=== PATIENT | female | born 1995 | race African-American/Black ===

== ENCOUNTER 2021-07-12 09:15 | Outpatient (CLI) | payer BC, MEDICARE, MEDICAID, SELFPAY | END 2021-07-12 09:16 | disposition home or self-care (01) | LOC: ANHBWCAUD 09:18 | PROVIDERS: PCP Family Medicine; Visit Provider Family Medicine | DX: H91.93 Unspecified hearing loss, bilateral (principal) | CPT/HCPCS: 92553; 92555; 92567 ==

== ENCOUNTER 2021-12-19 13:23 | Emergency (ER) | payer BC, MEDICARE, MEDICAID, SELFPAY ==
[2021-12-19 13:34] VITALS: BP 134/77; PULSE 100; RESP 20; TEMP 36.6; O2SAT 100
--- NOTE | 2021-12-19 13:40 | ED.EYEPROB ---
HPI - Eye Problem General Chief complaint: Eye Problems Stated complaint: right eye swollen/discharge Time Seen by Provider: 12/19/21 13:40 Source: patient and RN notes reviewed Mode of arrival: ambulatory Limitations: no limitations History of Present Illness HPI Narrative: 26-year-old female with a history of MR presents to the [facility] with complaints of right eye redness, patient to follow-up in 2-3 days with primary care provider.. [facility]. Senior Payroll Administrator said she was fine on Sunday unsure of which day it started. No treatment prior to arrival. Patient denies any changes in vision. Denies any injury to the eye. Related Data Home Medications Medication Instructions Recorded Confirmed divalproex 500 mg tablet,delayed 500 mg PO DAILY 12/19/21 12/19/21 release medroxyprogesterone 150 mg/mL 150 mg IM [id number] 12/19/21 12/19/21 intramuscular syringe melatonin 1 mg tablet 2 mg PO HS 12/19/21 12/19/21 Allergies Allergy/AdvReac Type Severity Reaction Status Date / Time No Known Allergies Allergy Verified 12/19/21 14:01 Review of Systems Review of Systems: All systems reviewed & are unremarkable except as noted in HPI and below Constitutional: Constitutional: Reports no additional constitutional complaints, Denies chills and Denies fever(s) Eyes: Eyes: Reports as per HPI ENT: Reports system reviewed and no additional complaints, except as documented Cardiovascular: Cardiovascular: Reports no additional cardiovascular complaints Respiratory: Respiratory: Reports no additional respiratory complaints Gastrointestinal: Gastrointestinal: Reports no additional gastrointestinal complaints Musculoskeletal: Musculoskeletal: Reports no additional musculoskeletal complaints Integumentary/Breasts: Skin/Breast: Reports system reviewed and no additional complaints, except as docu Neurologic: Reports system reviewed and no additional complaints, except as documented Psychiatric: Psychiatric: Reports no additional psychiatric complaints Allergic/Immunologic: Allergic/Immunologic: Reports no additional allergic/immunologic complaints [facility] Social History Social History (Updated 12/19/21 @ 21:32 by Estefany Stern APRN) Living arrangements: [facility] Gender identity (if verbalized by the patient): Female Comments At the time of my signature, I reviewed and agree with the nursing past medical, surgical, social, and family history. There is no relevant family history pertinent to the patient complaint. Exam Const: General: healthy appearing, no acute distress and alert Nutritional Appearance: well nourished Orientation/consciousness: patient oriented x3 Limitations: no limitations HENMT: Head: normal to inspection Ears: external ears normal, TM's normal bilaterally and EAC's normal General nose exam: Normal external nose present Throat: posterior oropharynx normal Eyes: General: appearance normal, both eyes and all related structures Conjunctivae: conjunctival abnormality right conjunctival injection circumcorneal and discharge purulent Pupils: Equal, round and reactive pupils present EOM: EOMs intact bilaterally Neck: Neck: normal visual inspection, no lymphadenopathy and no meningeal signs Chest: Chest palpation & inspection: normal inspection of the chest Resp: Effort & Inspection: normal respiratory effort and no use of accessory muscles Auscultation: clear to auscultation bilaterally, no crackles, no rales, no rhonchi and no wheezes Cardio: Rate: regular rate Rhythm: regular rhythm Back/Spine/Pelvis: Cervical Spine: normal cervical lordosis Thoracic/Lumbar Spine: thoracic and lumbar spine normal to inspection Skin: General skin exam: normal color Rashes: no rashes Wounds: no wounds Neuro: General: patient oriented x3, moves all extremities, no meningeal signs and no focal motor deficits Cranial nerves: Yes Equal, round and reactive pupils present Spee
== END 2021-12-19 14:15 | disposition home or self-care (01) ==
PROVIDERS: Emergency Provider Nurse Practitioner; PCP Family Medicine
DX: H10.9 Unspecified conjunctivitis (principal)
CPT/HCPCS: 99213; G0463

== ENCOUNTER 2025-02-03 08:07 | Emergency (ER) | payer MEDICARE, MEDICAID, SELFPAY ==
--- OUTSIDE RECORDS SUMMARY | 2025-01-01 08:00 | XMS_ITS ---
Author Organization [facility] Address [address] [place] [address] Care Team Providers Care Drilling Machine Operator Name Role Phone Keren Trotter Primary Care Provider Autumn Solis Unavailable [phone] REASON FOR VISIT 3 Month Psych F/U & Med Refill Encounters Encounter Location Date Provider Diagnosis [address] [place] [address] 01/01/2025 Autumn Solis Plan Of Treatment Next Appt Details Provider Name:Autumn alba, 02/10/2025 03:40:00 PM, [address], [place], [address], Progress Notes * Priti ISIDRODOB:1995 (30 yo F)Acc No.[id number]:01/01/2025 UNLOCKED PROGRESS NOTE Patient: Priti MORA Provider: Felipe Solis, MSN, BRICKLAYER SEWER, APPRENTICESHIP CONSULTANT-C :1995 A ge:29 Y S ex:Female Date:01/01/2025 Address:[address], [place], [id number] Pcp:Keren Trotter Subjective: * Chief Complaints: * 1 . 3 Month Psych F/U & Med Refill. * Medical History: Objective: * Vitals: Assessment: Plan: * Treatment: * * Electronic signature of Chai Solis , [id number] on 02/03/2025 at 08:13 AM CDT Sign off status: Pending * Provider: Felipe Solis, MSN, BRICKLAYER SEWER, APPRENTICESHIP CONSULTANT-C Date: 0 01/01/2025 Generated for Salvador nguyen/Trupti/Michoacano on: 1 08:13 AM CDT
--- OUTSIDE RECORDS SUMMARY | 2025-01-08 11:00 | XMS_ITS ---
Author Organization [facility] Address [address] [place] [address] Care Team Providers Care Laundry Technician Name Role Phone Keren Trotter Primary Care Provider Diana Pulido Unavailable REASON FOR VISIT transfer from Jamie Trotter; needs 40 min Encounters Encounter Location Date Provider Diagnosis [facility] [address] [place] [address] 01/08/2025 Diana Pulido Plan Of Treatment Next Appt Details Provider Name:Autumn Anival alba, 02/10/2025 03:40:00 PM, [address], [place], [address], Progress Notes * Priti ISIDRODOB:1995 (30 yo F)Acc No.[id number]:01/08/2025 UNLOCKED PROGRESS NOTE Progress Notes Patient: Priti MORA Provider: Robert Pulido, MSN, STONE AND PLATE PREPARER APPRENTICE, AUTO TRANSMISSION SPECIALIST-BC, AUTO TRANSMISSION SPECIALIST-C :1995 A ge:29 Y S ex:Female Date:01/08/2025 Address:[address], [place], [id number] Pcp:Keren Trotter Subjective: * Chief Complaints: * 1 . transfer from Jamie Trotter; needs 40 min. * Medical History: Objective: * Vitals: Assessment: Plan: * Treatment: * * Electronic signature of Bandar Pulido APRN, [id number] on 02/03/2025 at 08:14 AM CDT Sign off status: Pending * Provider: Robert Pulido, MSN, STONE AND PLATE PREPARER APPRENTICE, AUTO TRANSMISSION SPECIALIST-BC, AUTO TRANSMISSION SPECIALIST-C Date: 0 01/08/2025 Generated for Printing/Faxing/eTransmitting on: 1 08:14 AM CDT
--- OUTSIDE RECORDS SUMMARY | 2025-01-20 09:00 | XMS_ITS ---
Author Organization [facility] Address [address] [place] [address] Care Team Providers Care Buffing Machine Operator Name Role Phone Keren Trotter Primary Care Provider Autumn Solis Unavailable [phone] REASON FOR VISIT 3 Month Psych F/U & Med Refill Encounters Encounter Location Date Provider Diagnosis [facility] [address] [place] [address] 01/20/2025 Autumn Solis Plan Of Treatment Next Appt Details Provider Name:Autumn alba, 02/10/2025 03:40:00 PM, [address], [place], [address], Progress Notes * Priti ISIDRODOB:1995 (30 yo F)Acc No.[id number]:01/20/2025 UNLOCKED PROGRESS NOTE Patient: Priti MORA Provider: Felipe Solis, MSN, CASING SPLITTER, EMAIL SPECIALIST-C :1995 A ge:29 Y S ex:Female Date:01/20/2025 Address:[address], [id number] Pcp:Keren Trotter Subjective: * Chief Complaints: * 1 . 3 Month Psych F/U & Med Refill. * Medical History: Objective: * Vitals: Assessment: Plan: * Treatment: * * Electronic signature of Chai Solis , [id number] on 02/03/2025 at 08:14 AM CDT Sign off status: Pending * Provider: Felipe Solis, MSN, CASING SPLITTER, EMAIL SPECIALIST-C Date: 0 01/20/2025 Generated for Salvador nguyen/Trupti/Michoacano on: 1 08:14 AM CDT
--- NOTE | 2025-02-03 08:11 | ED.FEMALEGU ---
HPI - Female Genitourinary General Chief complaint: Urogenital-Female Stated complaint: UTI Time Seen by Provider: 02/03/25 08:25 Source: patient, RN notes reviewed and old records reviewed Mode of arrival: ambulatory Limitations: no limitations History of Present Illness HPI Narrative: 30-year-old female presents to the [facility] with concerns for a UTI. Patient presents with guardian, states that of last week started complaining of a little bit of burning but no other symptoms. Was given an gnzz-msu-[id number] medication. No complaints until yesterday when she started having burning with urination as well as urgency. Currently on the Depo shot. Patient denies any abdominal pain, chest pain, nausea, vomiting, back pain. No fevers. Related Data Home Medications ?Medication ?Instructions ?Recorded ?Confirmed ?Last Taken ?Type divalproex 500 mg tablet,delayed 500 mg PO DAILY 12/19/21 12/19/21 Unknown History release medroxyprogesterone 150 mg/mL 150 mg IM [id number] 12/19/21 12/19/21 Unknown History intramuscular syringe melatonin 1 mg tablet 2 mg PO HS 12/19/21 12/19/21 Unknown History guanfacine 1 mg tablet,extended mg PO 02/03/25 Unknown History release 24 hr Allergies Allergy/AdvReac Type Severity Reaction Status Date / Time No Known Allergies Allergy Verified 02/03/25 08:33 Review of Systems Review of Systems: All systems reviewed & are unremarkable except as noted in HPI and below Constitutional: Constitutional: Reports no additional constitutional complaints Cardiovascular: Cardiovascular: Reports no additional cardiovascular complaints, Denies chest pain and Denies dyspnea Respiratory: Respiratory: Reports no additional respiratory complaints, Denies chest congestion, Denies cough and Denies dyspnea Genitourinary: Genitourinary: Reports as per HPI, Reports dysuria, Denies flank pain and Reports urinary urgency (With frequency) Musculoskeletal: Musculoskeletal: Reports no additional musculoskeletal complaints Integumentary/Breasts: Skin/Breast: Reports system reviewed and no additional complaints, except as docu PMFSH Past Medical History Medical History (Updated 02/03/25 @ 08:35 by Estefany Stern APRN) ADHD Social History Social History Living arrangements: detention Gender identity (if verbalized by the patient): Female Comments At the time of my signature, I reviewed and agree with the nursing past medical, surgical, social, and family history. There is no relevant family history pertinent to the patient complaint. Exam Const: General: cooperative, healthy appearing, comfortable, no acute distress, well developed, alert and well nourished Nutritional Appearance: well nourished Orientation/consciousness: patient oriented x3 Limitations: no limitations HENMT: Head: normal to inspection Eyes: General: appearance normal, both eyes and all related structures Alignment and Position: alignment normal Neck: Neck: normal visual inspection, full ROM, no lymphadenopathy and no meningeal signs Chest: Chest palpation & inspection: normal inspection of the chest Resp: Effort & Inspection: normal respiratory effort and able to speak in complete sentences Cardio: Rate: regular rate Skin: General skin exam: normal color and no rashes or lesions noted Neuro: General: patient oriented x3, gait normal, moves all extremities and no meningeal signs Cognition (Neuro): normal cognition Speech: normal speech Gait exam (Neuro): Normal gait present Extrem: General: normal to inspection, full ROM, capillary refill normal and normal gait Psych: Appearance: grossly normal and well kempt Mental Status: mental status grossly normal Speech and movement: Normal speech and movement present and Clear speech present Affect: normal affect Attitude: cooperative Course Course Level of Care: Express Care Visit Vital Signs Vital signs: Vital Signs Temperature 97.5 F L 02/03/25 08:23 Pulse Rate 78 02/03/25 08:23 Respiratory Rate 18 02/03/25 08:23 Blood Pressure 122/71 02/03/25 08:23 Pulse Oximetry 99 02/03/25 08:23 Oxygen Delivery Room Air 02/03/25 08:23 Temperature 97.5 F L 02/03/25 08:23 Pulse Rate 78 02/03/25 08:23 Respiratory Rate 18 02/03/25 08:23 Blood Pressure 122/71 02/03/25 08:23 Pulse Oximetry 99 02/03/25 08:23 Oxygen Delivery Room Air 02/03/25 08:23 Reviewed MDM - Female Genitourinary MDM Narrative Medical decision making narrative: Patient sitting in exam room. Patient is nontoxic, vitals stable. Patient presents with urinary symptoms. Trace leukocytes noted. Patient is appropriate for outpatient treatment with antibiotics, culture sent Discharge instructions reviewed with patient, as well as provided in writing per nursing staff. The instructions also include specific and strict return/GO TO THE ER as well as f/u information. All questions have been answered, and the patient deny any further questions with discharge and discharge plan. Some parts of this dictation were generated by voice recognition software and may contain typographical and/or grammatical inaccuracies. Differential Diagnosis Differential diagnosis: Likely urinary tract infection, vaginitis and cystitis Lab Data Labs: Lab Results 02/03/25 Range/Units 08:33 POC Urine Color Yellow POC Urine Clarity Clear POC Urine pH 7.0 POC Ur Specif [place] 1.020 POC Urine Protein Trace (Negative) POC Ur Glucose (UA) Negative (Negative) POC Urine Ketones Negative (Negative) POC Urine Blood Trace (Negative) POC Urine Nitrite Negative (Negative) POC Urine Bilirubin Negative (Negative) POC Urine Urobilinogen 1.0 POC U Leukocyte Esteras 1+ (Negative) Reviewed Critical Care Time Critical Care Time Critical Care Time: No Discharge Plan Discharge Clinical Impression: Urinary tract infection Patient Disposition: Home Condition: Stable Instructions: Antibiotic Form, Urinary Tract Infection in Women (DC) Additional Instructions: Increased water intake Take Tylenol as needed for pain Take antibiotic as prescribed Today your urine dip showed a probability of a UTI. You have been prescribed an antibiotic. Your urine will be sent to our lab for a culture. If at that time a bacteria grows that is not covered by the antibiotic prescribed you will be notified. Follow-up with primary care For new or worsening symptoms go directly to the emergency room Patient Language: [place] Islander Prescriptions: New amoxicillin-pot clavulanate 875-125 mg tablet 1 tablet PO Q12H Qty: 10 0RF No Action guanfacine 1 mg tablet extended release 24 hr PO divalproex 500 mg tablet,delayed release (DR/EC) 500 mg PO DAILY medroxyprogesterone 150 mg/mL syringe 150 mg IM [id number] melatonin 1 mg Tablet 2 mg PO HS Follow-up/Referrals: UNKNOWN,DOCTOR [Non-Staff] Time of Disposition: 08:36
--- OUTSIDE RECORDS SUMMARY | 2025-02-03 08:13 | XMS_ITS | Encounter Summary ---
Author Organization [facility] Address [address] [place] [address] Care Team Providers Care Attending Urologist Name Role Phone Unavailable Primary Care Provider Unavailabl e Reason for Referral * Consultation (Routine) - Closed Specialty Diagnoses / Procedures Referred By Rashi t Referred To Contact Ophthalmology Diagnoses Open angle with borderline findings and low glaucoma risk in both eyes Eval for OCT ONH + GCC, VF 24-2. IOP check [facility] - Ophthalmology [address] [place] [address] Phone: tel: fax: Referral ID Status Reason Start Date Expiration Date V isits Requested Visits Authorized [id number] Closed Specialty Services Required 03/19/2024 03/19/2025 1 1 FARMER Encounter Details Date Type Department Care Team (Latest Contact Info) Description 03/19/2024 Transcribe Orders [facility] - Centralized Scheduling [address] [place] [phone] [facility] Open angle with borderline findings and low glaucoma risk in both eyes Social History Tobacco Use Types Packs/Day Years Used Date Smoking Tobacco: Never Smokeless Tobacco: Never Alcohol Use Standard Drinks/Week Comments Never 0 (1 standard drink = 0.6 oz pur e alcohol) AUDIT-C Answer Date Recorded Q1: How often do you have a drink containing alcohol? Never 12/18/2023 Q2: How many drinks containi ng alcohol do you have on a typical day when you are drinking? Patient does not drink Q3: How often do you have si x or more drinks on one occasion? Never 12/18/2023 Overall Financial Resource Strain (CARDIA) Answe r Date Recorded How hard is it for you to pa y for the very basics like food, housing, medical care, and heating? Very hard 12/18/2023 PHQ-2 Answer Date Recorded Patient Health Questionnaire-2 Score 1 12/17/2023 [facility] - Occupational Stress Questionnaire Answer Date Recorded Do you feel stress - tense, restless, nervous, or anxious, or unable to sleep at night because your mind is troubled all the time - these days? To some extent 12/18/2023 Hunger Vital Sign Answer Date Recorded Within the past 12 months, y ou worried that your food would run out before you got the money to buy more. Never true 12/18/19 24 Within the past 12 months, t he food you bought just didn't last and you didn't have money to get more. Never true 12/18/2023 PRAPARE - Transportation Answer Date Re corded In the past 12 months, has l ack of transportation kept you from medical appointments or from getting medications? No 11/29 In the past 12 months, has l ack of transportation kept you from meetings, work, or from getting things needed for daily living? No 12/18/2023 Housing Stability Vital Sign Answer Sameer e Recorded In the last 12 months, was t here a time when you were not able to pay the mortgage or rent on time? No 12/18/2023 In the last 12 months, how many places have you lived? 1 12/18/2023 In the last 12 months, was t here a time when you did not have a steady place to sleep or slept in a half-way (including now)? Yes 12/18/2023 Comments No Sex and Gender Information Value Date Recorded Sex Assigned at Not on file Legal Sex Female 10:58 AM CDT Gender Identity Not on file Sexual Orientation Not on file documented as of this encounter Functional Status * Is person deaf or have serious hearing difficulty? Answer Date of Assessment Author No 12/18/2023 9:50 PM CDT Addison Vargas V., RN * Is person blind or have serious difficulty seeing? Answer Date of Assessment Author No 12/18/2023 9:50 PM Addison Snyder RN * Does person have serious difficulty walking/climbing stairs? Answer Date of Assessment Author No 12/18/2023 9:50 PM Addison Snyder RN * Does person have difficulty dressing/bathing? Answer Date of Assessment Author No 12/18/2023 9:50 PM Addison Snyder RN * Does person have difficulty doing errands alone? Answer Date of Assessment Author No 12/18/2023 9:50 PM Addison Snyder RN documented as of this encounter Mental Status * Does person have difficulty concentrating/remembering/making decisions? Answer Entry Date Author No 12/18/2023 9:50 PM Addison Snyder RN documented in this encounter Plan of Treatment Scheduled Referrals Name Type Priority Associated Diagnoses Order Schedule AMB REFERRAL TO OPHTHALMOLOGY Outpatient Referral Routine Open angle with borderline findings and low glaucoma risk in both eyes 1 Occurrences starting 03/19/2024 until 03/19/2025 documented as of this encounter Visit Diagnoses Diagnosis Open angle with borderline findings and low glaucoma risk in both eyes- Primary Open angle with borderline findings, low risk documented in this encounter
--- OUTSIDE RECORDS SUMMARY | 2025-02-03 08:14 | XMS_ITS | Patient Health Record ---
Author Organization [facility] Address [address] [place] [address] Care Team Providers Care Galley Hand Name Role Phone Rose Marie Keren Primary Care Provider Jorge Mantilla Unavailable [phone] Autumn Solis Unavailable [phone] Diana Pulido Unavailable Rommel Hanna Unavailable [phone] Allergies No Known Allergies Results Component Value Reference Range Notes CBC With Differential/Platel et* Reviewed date:06/03/2024 02:45:38 PM Interpretation: Performing Lab:[facility] [place], [address] [facility], Phone - [phone], Director - PhDRicchiblui Notes/Report: WBC 8.0 3.4-10.8 x10E3/uL RBC 4.78 3.77-5.28 x10E6/uL Hemoglobin 14.4 11.1-15.9 g/dL Hematocrit 44.9 34.0-46.6 % MCV 94 79-97 fL MCH 30.1 26.6-33.0 pg MCHC 32.1 31.5-35.7 g/dL RDW 11.9 11.7-15.4 % Platelets 249 150-450 x10E3/uL Neutrophils 56 Not Estab. % Lymphs 29 Not Estab. % Monocytes 11 Not Estab. % Eos 3 Not Estab. % Basos 1 Not Estab. % Neutrophils (Absolute) 4.5 1.4-7.0 x10E3/uL Lymphs (Absolute) 2.3 0.7-3.1 x10E3/uL Monocytes(Absolute) 0.9 0.1-0.9 x10E3/uL Eos (Absolute) 0.2 0.0-0.4 x10E3/uL Baso (Absolute) 0.0 0.0-0.2 x10E3/uL Immature Granulocytes 0 Not Estab. % Immature Grans (Abs) 0.0 0.0-0.1 x10E3/uL Vitamin D, 25-Hydroxy* Reviewed date:06/03/2024 02:45:38 PM Interpretation:Low Performing Lab:[facility] [place], [address] [facility], Phone - [phone], Director - [facility] Notes/Report: Vitamin D, 25-Hydroxy 15.6 30.0-100.0 ng/mL Vitamin D deficiency has been defined by the [place] of Medicine and an Endocrine Society practice guideline as a level of serum 25-OH vitamin D less than 20 ng/mL (1,2). The Endocrine Society went on to further define vitamin D insufficiency as a level between 21 and 29 ng/mL (2). 1. IOM ([place] of Medicine). 2010. Dietary reference intakes for calcium and D. [place]: The National Academies Press. 2. Charissa MF, [place]on [place], Arvin DEL CASTILLO, et al. Evaluation, treatment, and prevention of vitamin D deficiency: an Endocrine Society clinical practice guideline. JCEM. 2010; 96(7):1911-30. Vitamin B12 and Folate Reviewed date:06/03/2024 02:45:38 PM Interpretation: Performing Lab:[facility] [address] [facility], Phone - [phone], Director - [facility] Notes/Report: Vitamin B12 555 608-4254 pg/mL Folate (Folic Acid), Serum 8.5 >3.0 ng/mL A serum folate concentration of less than 3.1 ng/mL is considered to represent clinical deficiency. CMP 14 Comprehensive Metabol ic Panel* Reviewed date:06/03/2024 02:45:38 PM Interpretation: Performing Lab:[facility] [place], [address] [facility], Phone - [phone], Director - Samantha Notes/Report: Glucose 96 70-99 mg/dL BUN 14 6-20 mg/dL Creatinine 0.77 0.57-1.00 mg/dL eGFR 108 >59 mL/min/1.73 BUN/Creatinine Ratio 18 9-23 Sodium 141 134-144 mmol/L Potassium 3.8 3.5-5.2 mmol/L Chloride 105 96-106 mmol/L Carbon Dioxide, Total 21 20-29 mmol/L Calcium 8.7 8.7-10.2 mg/dL Protein, Total 7.5 6.0-8.5 g/dL Albumin 4.0 4.0-5.0 g/dL Globulin, Total 3.5 1.5-4.5 g/dL Bilirubin, Total 0.2 0.0-1.2 mg/dL Alkaline Phosphatase 95 44-121 IU/L AST (SGOT) 25 0-40 IU/L ALT (SGPT) 30 0-32 IU/L Hemoglobin A1c* Reviewed date:06/03/2024 02:45:38 PM Interpretation: Performing Lab:[facility] [place], [address] [place] [address], Phone - [phone], [facility] Notes/Report: Hemoglobin A1c 5.5 4.8-5.6 % . 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 They have questions about options for day programs in the area. I was not able to meet with them onsite yesterday. Please reach out to assist!, Torie Mccartney 07/18/2024 12:31:49 PM > Health Navigator will share the following resource: Developmental Disability Services in [place] , [facility]. ([facility]) , [address] [facility], [place], [place] , Clinical Notes Torie Mccartney 12:33:22 PM > Called Priti. Left message with my contact information to return my phone call., Torie Mccartney 07/21/2024 10:38:10 AM > Called Priti Mg's father. Left message with my contact information to return my phone call., Torie Mccartney 07/23/2024 12:06:34 PM > Called Priti Mg's father. Left message with my contact information to return my phone call. Also left information stating I will drop a letter in the mail with resource information for Priti., Torie Mccartney 08/01/2024 11:53:49 AM > Health Navigator has returned multiple calls this week to Saurav and left linda. Health Navigator now has Saurav's work number to call. Spoke with Saurav and shared with him the Developmental disability services information as well as Genny Ortiz to see if they might be something that can help. Saurav expressed gratitude and phone call ended. Referral Priority Routine Reason Dizziness, tremors, possible fainting spells, rigidity, family hx of seizures. 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 Dose now decrease slightly and changed to BID, however, client noted to have no improvement, more likely worsening of tremors. Also reported fainting spells x 2 and feelings of not being able to move. Does have positive family history of absence seizures (brother). Please refer., Boaz Carley Jaime 09/18/2024 02:20:15 PM > Referral sent with attachments, letter mailed, Ema Sandraangeli Jaime 09/25/2024 02:55:30 PM > [facility] is not accepting new patients. Clinical Notes [facility], [place] [id number], [place] [phone], , Referral Priority Routine Medications Medication SIG (Take, Route, Frequency, Duration) Notes Start Date End Date Status Nitrofurantoin Monohyd Macro 100 MG Oral; Duration: 7 Days Not-Taking Vitamin D (Ergocalciferol) 79627 UNIT 1 capsule Orally once a week for 8 weeks; Duration: 60 days 06/03/2024 Not-Taking Austedo 12 MG 1 tablet with food Orally Twice a day; Duration: 30 days 09/02/2024 Active Sulfamethoxazole-Trimethopr im 800-160 MG Oral; Duration: 3 Days Not-Taking Calcium 600 MG 1 tablet with meals Orally Once daily Active medroxyPROGESTERone Acetate 150 MG/ML 1 mL Intramuscular every 3 months; Duration: 90 days Active guanFACINE HCl ER 1 MG as directed Orall y once daily at night; Duration: 30 days Active Social History Tobacco Use: Social History Observation Description Date Details (start date - stop date) Never Smoker NA - NA Tobacco Control (Standard) Question Answer Notes Tobacco use: Nonsmoker Problems Problem Type SNOMED Code ICD Code Onset Dates Problem Status W/U Status Risk Notes Problem Disorder of psychological development (935519059) Other disorders of psychological development (F88) Active confirmed Developmental delay Problem Mood disorder (11656909) Mood disorder (F39) Active confirmed ddx: medication induced mood disorder Problem Vitamin D deficiency (29953262) Vitamin D deficiency (E55.9) Active confirmed Problem History of psychiatric disorder (946418819) History of ADHD (Z86.59) Active confirmed hyperactive type Problem Overweight (190333269) Over weight (E66.3) Active confirmed Problem Obese class II (56618840864305 5) BMI 36.0-36.9,adult (Z68.36) Active confirmed Problem Obese class II (36044909288957 5) BMI 37.0-37.9, adult (Z68.37) Active confirmed Vital Signs Heart Rate 85 /min 01/08/2025 Temperature 98.0 degrees Fahrenheit 01/08/2025 Respiratory Rate 20 /min 01/06/2025 Blood pressure diastolic 78 mm Hg 01/08/2025 Oximetry 100 % 01/08/2025 Height 67 in 01/08/2025 Blood pressure systolic 112 mm Hg 01/08/2025 Weight 232.2 lbs 01/08/2025 BMI 36.36 kg/m2 01/08/2025 Encounters Encounter Location Date Provider Diagnosis [facility] [address] [place] [address] 06/02/2024 Keren Trotter Establishing care with new doctor, encounter for Z71.89 ; Screening for deficiency anemia Z13.0 ; Screening for metabolic disorder Z13.228 ; Screening for diabetes mellitus Z13.1 ; Screening for thyroid disorder Z13.29 ; Contraception Z78.9 and Nutritional counseling Z71.3 [facility] [address] [place] [address] 06/03/2024 Autumn Solis Other disorders of psychological development F88 ; Mood disorder F39 and History of ADHD Z86.59 [facility] [place] [address] 06/17/2024 Autumn Solis Other disorders of psychological development F88 ; Mood disorder F39 and History of ADHD Z86.59 [facility] [place] [address] 07/08/2024 Autumn Solis Other disorders of psychological development F88 ; Mood disorder F39 ; History of ADHD Z86.59 ; Tardive dyskinesia G24.01 and Nutritional counseling Z71.3 [facility] [place] [address] 07/14/2024 Keren Trotter Contraception Z78.[address] [place] [address] 07/30/2024 Autumn Solis Other disorders of psychological development F88 ; Mood disorder F39 ; History of ADHD Z86.59 ; Tardive dyskinesia G24.01 and Nutritional counseling Z71.3 [facility] [address] [place] [address] 09/02/2024 Autumn Solis Over weight E66.3 ; Other disorders of psychological development F88 ; Mood disorder F39 ; History of ADHD Z86.59 ; Tardive dyskinesia G24.01 and Nutritional counseling Z71.3 [facility] [address] [place] [address] 09/30/2024 Autumn Solis Over weight E66.3 ; Other disorders of psychological development F88 ; History of ADHD Z86.59 and Contraception management Z30.9 [facility] [address] [place] [address] 01/06/2025 Autumn Solis [place] [address] [facility] [place] [address] 01/08/2025 Rommel Hanna Adult general medica l examination Z00.00 ; Other disorders of psychological development F88 ; Contraception management Z30.9 ; Over weight E66.3 and BMI 36.0-36.9,adult Z68.[address] [place] [address] 06/03/2024 Keren Trotter Vitamin D deficiency E55.[address] [place] [address] 07/08/2024 Autumn Solis [place] [address] [place] [address] 07/09/2024 Keren Trotter [facility] [address], [place] [address] 08/22/2024 Autumn Solis [address] [place] [address] 09/25/2024 Jorge Mantilla [address] [place] [address] 12/31/2024 Autumn Solis [address] [place] [address] 01/05/2025 Rommel Hanna Assessments Encounter Date Diagnosis (ICD Code) Assessment Notes Treatment Notes Treatment Clinical Notes Section Notes 06/02/2024 Establishing care with new doctor, encounter for (ICD-10 - Z71.89) 06/02/2024 Screening for deficiency anemia (ICD-10 - Z13.0) 06/03/2024 Other disorders of psychological development (ICD-10 - F88) Developmental delay Continue depakote at this time with plans to decrease if/as tolerated. 06/03/2024 Mood disorder (ICD-10 - F39) ddx: medication induced mood disorder, probably, will assess as wean down progresses monitoring mood with stop of Abilify Noted to have tremor in hands, discussed possible TD, will continue evaulating as medication titrates out of system, client and dad/guardian v/u. 06/03/2024 Vitamin D deficiency (ICD-10 - E55.9) 06/17/2024 Other disorders of psychological development (ICD-10 - F88) Developmental delay Discussed r/b/se. May look to start Austedo if shaking continues. 07/08/2024 Other disorders of psychological development (ICD-10 - F88) Developmental delay Continue at lower dose as some aggitation noted, unsure if related to medication decrease- further eval needed, will continue to assess at 250mg BID. Client and dad voice agreement and understanding. 07/08/2024 Mood disorder (ICD-10 - F39) ddx: medication induced mood disorder, probably, will assess as wean down progresses monitoring mood with stop of Abilify Noted to have tremor in hands, discussed possible TD, will continue evaulating as medication titrates out of system, client and dad/guardian v/u. 07/14/2024 Contraception (ICD-10 - Z78.9) Marni Maldonado 07/14/2024 04:07:31 PM CDT >next injection due between 09/29/24-10/13/24. Patients dad is aware of next injection date. 07/30/2024 Other disorders of psychological development (ICD-10 - F88) Developmental delay Decreasing and stopping medication, no major changes with decrease from 1g to 500mg. Discussed wean with mom 09/02/2024 Over weight (ICD-10 - E66.3) 09/30/2024 Over weight (ICD-10 - E66.3) 01/08/2025 Other disorders of psychological development (ICD-10 - F88) Developmental delay 01/08/2025 Adult general medical examination (ICD-10 - Z00.00) - The patient is up to date on preventative screenings, follow up with [employer] for annual WWE, pap, and mammogram. - The patient is UTD on vaccines, recommended annual flu vaccines and COVID boosters as appropriate - Discussed weight loss techniques including increased physical activity, healthy diet. Encouraged patient to aim for a goal of 150 minutes of moderate-intensity exercise and 2 days of strength training. Educated them on the importance of starting small and building on their successes. - Discussed healthier eating habits including frequent meals which are carb/protein balanced. Discussed avoidance of simple carbohydrates, encouraged portion-controlled complex carbohydrates. - Recommended increasing water intake and avoiding sugary beverages, excess caffeine and alcohol intake - Follow up in 3 to 4 months or sooner with any questions, concerns. - Patient denies any concerns with her plan of care. People verbalizes understanding and agrees to plan of care. 01/08/2025 Contraception management (ICD-10 - Z30.9) Educated father and patient on stopping depo provera shot going forward, citing possibility of early onset osteoporosis, vit. D deficiency, and hypocalcemia. Patient received shot 2 days prior. Will have patient come back 3-4 months to re-evaluate needs and to order labs at that time. Encouraged family to re-establish with [employer] provider within network. 09/30/2024 Other disorders of psychological development (ICD-10 - F88) Developmental delay Hx of Abilify and Depakote with negative reactions: fatigue, flat affect 06/02/2024 Screening for metabolic disorder (ICD-10 - Z13.228) 09/30/2024 History of ADHD (ICD-10 - Z86.59) hyperactive type Hx of taking strattera with positive results possible ODD with developmental delay in mind 09/02/2024 Other disorders of psychological development (ICD-10 - F88) Developmental delay Decreasing and stopping medication, no major changes with decrease from 1g to 500mg. Discussed wean with mom 09/02/2024 Mood disorder (ICD-10 - F39) ddx: medication induced mood disorder 07/30/2024 Mood disorder (ICD-10 - F39) ddx: medication induced mood disorder, probably, will assess as wean down progresses monitoring mood with stop of Abilify Noted to have tremor in hands, discussed possible TD, will continue evaulating as medication titrates out of system, client and dad/guardian v/u. 07/08/2024 History of ADHD (ICD-10 - Z86.59) hyperactive type reports doing well at this time Hx of taking strattera with positive results 06/17/2024 Mood disorder (ICD-10 - F39) ddx: medication induced mood disorder, probably, will assess as wean down progresses monitoring mood with stop of Abilify Noted to have tremor in hands, discussed possible TD, will continue evaulating as medication titrates out of system, client and dad/guardian v/u. 06/03/2024 History of ADHD (ICD-10 - Z86.59) hyperactive type reports doing well at this time 06/02/2024 Screening for diabetes mellitus (ICD-10 - Z13.1) 06/17/2024 History of ADHD (ICD-10 - Z86.59) hyperactive type reports doing well at this time Hx of taking strattera with positive results 07/08/2024 Tardive dyskinesia (ICD-10 - G24.01) AIMS positive and distress in client's life, also affecting her ADLS due to hands shaking. Interferes with eating and dressing herself at times. Starting Austedo, discussed r/b/se. 07/30/2024 History of ADHD (ICD-10 - Z86.59) hyperactive type reports overstimulation, poor attention and negative reactions to this- starting guanfacine possible ODD with developmental delay in mind Hx of taking strattera with positive results 09/02/2024 History of ADHD (ICD-10 - Z86.59) hyperactive type reports overstimulation, poor attention and negative reactions to this- continue guanfacine x 1 week while decreasing austedo if dizziness continues, stop guanfacine and monitor dizziness. Hx of taking strattera with positive results possible ODD with developmental delay in mind 09/30/2024 Contraception management (ICD-10 - Z30.9) 01/08/2025 Over weight (ICD-10 - E66.3) 09/02/2024 Tardive dyskinesia (ICD-10 - G24.01) AIMS positive and distress in client's life, also affecting her ADLS due to hands shaking. Interferes with eating and dressing herself at times. Reports dizziness, lightheadedness, falls x 2 reported by her care during daytime- not seen at home. Mom reports symptoms that may be consistent with [employer], will continue to assess client. Decrease Austedo due to possible SE, discussed r/b/se. Due to increased tremors/rigidity despite Austedo, feelings of client not being able to move, family hx of seizures, referral placed for neurology. Also encouraged to F/U with PCP, may reestablish with provider as previous provider is no longer available. 07/30/2024 Tardive dyskinesia (ICD-10 - G24.01) AIMS positive and distress in client's life, also affecting her ADLS due to hands shaking. Interferes with eating and dressing herself at times. Continue at 30mg Continue Austedo, discussed r/b/se. 07/08/2024 Nutritional counseling (ICD-10 - Z71.3) 06/02/2024 Screening for thyroid disorder (ICD-10 - Z13.29) 01/08/2025 BMI 36.0-36.9,adult (ICD-10 - Z68.36) 07/30/2024 Nutritional counseling (ICD-10 - Z71.3) 09/02/2024 Nutritional counseling (ICD-10 - Z71.3) 06/02/2024 Nutritional counseling (ICD-10 - Z71.3) 06/02/2024 Contraception (ICD-10 - Z78.9) 06/03/2024 Other Reasons, potential benefits, potential risks, interactions and side effects of all medications were discussed. The Patient/Guardian asked appropriate questions, appeared to understand the answers, and decided to accept the treatment and continue being followed. Alternatives and expected course without treatment were reviewed. The Patient/Guardian is aware of the need to contact the office or return for an earlier appointment if any problems or concerns arise. May also contact the 24-hour crisis hotline (R), refer to the closest emergency room or call 911 if new symptoms arise of existing symptoms worsen. The Patient/Guardian is aware that this would apply to symptoms like: suicidal ideation, homicidal ideation, high risk behaviors, manic symptoms, psychotic symptoms, physical symptoms, or any other symptoms that may be dangerous to self or others. Greater than 50% of time spent on coordination and counseling where psychopharmacology as well as psychotherapeutic interventions were discussed along with review of treatments in the past. Education provided concerning need for adequate hydration. Patient/Guardian verbalized understanding of education, treatment plan and follow up. 06/17/2024 Other Reasons, potential benefits, potential risks, interactions and side effects of all medications were discussed. The Patient/Guardian asked appropriate questions, appeared to understand the answers, and decided to accept the treatment and continue being followed. Alternatives and expected course without treatment were reviewed. The Patient/Guardian is aware of the need to contact the office or return for an earlier appointment if any problems or concerns arise. May also contact the 24-hour crisis hotline ([facility]), refer to the closest emergency room or call 911 if new symptoms arise of existing symptoms worsen. The Patient/Guardian is aware that this would apply to symptoms like: suicidal ideation, homicidal ideation, high risk behaviors, manic symptoms, psychotic symptoms, physical symptoms, or any other symptoms that may be dangerous to self or others. Greater than 50% of time spent on coordination and counseling where psychopharmacology as well as psychotherapeutic interventions were discussed along with review of treatments in the past. Education provided concerning need for adequate hydration. Patient/Guardian verbalized understanding of education, treatment plan and follow up. This session was completed telephonically with client/parental/guar naam consent: Unable to determine movement status, assess appearance, affect, AIMS, or vital signs. 07/08/2024 Other Reasons, potential benefits, potential risks, interactions and side effects of all medications were discussed. The Patient/Guardian asked appropriate questions, appeared to understand the answers, and decided to accept the treatment and continue being followed. Alternatives and expected course without treatment were reviewed. The Patient/Guardian is aware of the need to contact the office or return for an earlier appointment if any problems or concerns arise. May also contact the 24-hour crisis hotline ([facility]), refer to the closest emergency room or call 911 if new symptoms arise of existing symptoms worsen. The Patient/Guardian is aware that this would apply to symptoms like: suicidal ideation, homicidal ideation, high risk behaviors, manic symptoms, psychotic symptoms, physical symptoms, or any other symptoms that may be dangerous to self or others. Greater than 50% of time spent on coordination and counseling where psychopharmacology as well as psychotherapeutic interventions were discussed along with review of treatments in the past. Education provided concerning need for adequate hydration. Patient/Guardian verbalized understanding of education, treatment plan and follow up. 07/30/2024 Other Reasons, potential benefits, potential risks, interactions and side effects of all medications were discussed. The Patient/Guardian asked appropriate questions, appeared to understand the answers, and decided to accept the treatment and continue being followed. Alternatives and expected course without treatment were reviewed. The Patient/Guardian is aware of the need to contact the office or return for an earlier appointment if any problems or concerns arise. May also contact the 24-hour crisis hotline ([facility]), refer to the closest emergency room or call 911 if new symptoms arise of existing symptoms worsen. The Patient/Guardian is aware that this would apply to symptoms like: suicidal ideation, homicidal ideation, high risk behaviors, manic symptoms, psychotic symptoms, physical symptoms, or any other symptoms that may be dangerous to self or others. Greater than 50% of time spent on coordination and counseling where psychopharmacology as well as psychotherapeutic interventions were discussed along with review of treatments in the past. Education provided concerning need for adequate hydration. Patient/Guardian verbalized understanding of education, treatment plan and follow up. This session was completed telephonically with client/parental/guar anam consent: Unable to determine movement status, assess appearance, affect, AIMS, or vital signs. 09/02/2024 Other Reasons, potential benefits, potential risks, interactions and side effects of all medications were discussed. The Patient/Guardian asked appropriate questions, appeared to understand the answers, and decided to accept the treatment and continue being followed. Alternatives and expected course without treatment were reviewed. The Patient/Guardian is aware of the need to contact the office or return for an earlier appointment if any problems or concerns arise. May also contact the 24-hour crisis hotline ([facility]), refer to the closest emergency room or call 911 if new symptoms arise of existing symptoms worsen. The Patient/Guardian is aware that this would apply to symptoms like: suicidal ideation, homicidal ideation, high risk behaviors, manic symptoms, psychotic symptoms, physical symptoms, or any other symptoms that may be dangerous to self or others. Greater than 50% of time spent on coordination and counseling where psychopharmacology as well as psychotherapeutic interventions were discussed along with review of treatments in the past. Education provided concerning need for adequate hydration. Patient/Guardian verbalized understanding of education, treatment plan and follow up. 09/30/2024 Other Reasons, potential benefits, potential risks, interactions and side effects of all medications were discussed. The Patient/Guardian asked appropriate questions, appeared to understand the answers, and decided to accept the treatment and continue being followed. Alternatives and expected course without treatment were reviewed. The Patient/Guardian is aware of the need to contact the office or return for an earlier appointment if any problems or concerns arise. May also contact the 24-hour crisis hotline ([facility]), refer to the closest emergency room or call 911 if new symptoms arise of existing symptoms worsen. The Patient/Guardian is aware that this would apply to symptoms like: suicidal ideation, homicidal ideation, high risk behaviors, manic symptoms, psychotic symptoms, physical symptoms, or any other symptoms that may be dangerous to self or others. Greater than 50% of time spent on coordination and counseling where psychopharmacology as well as psychotherapeutic interventions were discussed along with review of treatments in the past. Education provided concerning need for adequate hydration. Patient/Guardian verbalized understanding of education, treatment plan and follow up. Plan Of Treatment Next Appt Details Provider Name:Autumn alba, 02/10/2025 03:40:00 PM, [address], [place], [id number], Insurance Providers Payer Name Payer Address Payer Phone Subscriber Number Group Number Insured Name Patient Relationship to Insured Coverage Start Date Coverage End Date MEDICARE PART A [address] [place] [phone] [id number] Priti Isidro Self - patient is the insured 5 MEDICAID [address] [place] [address] [id number] Priti Isidro Self - patient is the insured 5 Medications Administered Medication Instructions Date of Administration Dosage Notes medroxyPROGESTERone Acetate 01/06/2025 1 mL medroxyPROGESTERone Acetate 07/14/2024 150 mg Marni Maldonado 07/14/2024 04:04:28 PM CDT >Intramuscular injection administered in the L deltoid as requested by patient. Patient tolerated the injection well. medroxyPROGESTERone Acetate 09/30/2024 150 mg Given Rt deltoid client tolerated well Medical (General) History Surgical History Surgery Date(Month/Year) Hospitalization History Reason Date(Month/Year) mental health
--- OUTSIDE RECORDS SUMMARY | 2025-02-03 08:14 | XMS_ITS | Clinical Summary ---
Author Organization [facility] [employer] Address [address] [place] [address] Care Team Providers Care Commercial Construction Superintendent Name Role Phone Unavailable Primary Care Provider Unavailabl e Source Comments [facility],non-owned Affiliates and Associated Physician Practices is amultiple site organization consisting of ambulatory clinics and hospital sitesin [place], [place], [place] and [place]. This disclosure is being madepursuant to the Care Everywhere program and may not contain all information available regarding this patient. Last updated 18.[employer] [facility] Allergies No known active allergies Medications * This document contains information received from the source organization and may not represent a complete record from that organization. * Be aware that medications may not be up to date on this document. Alwaysverify current medications with the patient. medroxyPROGEST ERone (Depo-Provera) 150 MG/ML prefilled syringeIndicat ions:Contracep tive Therapy Inject 150 (one hundred fifty) mg into muscle Every 90 days Inject on the 16th of every 3 months (DEC, MAR, JUN, SEPTEMBER) Reasons: Control Treatment Active Alum & Mag Hydroxide-Jaycee th (ANTACID LIQUID PO)Indications :Heartburn Take 20 mL by mouth 3 times daily as needed (Heartburn/indigesti on) Active diphenhydrAMIN E (Banophen) 25 MG tabletIndicati ons:Insomnia Take 1 (one) tablet by mouth every 4 hours as needed for Itching (vaginal itching) Reasons: Trouble Sleeping Active calcium carbonate (Tums) 500 MG chew tabletIndicati ons:Heartburn Take 1 (one) tablet by mouth 4 times daily as needed for Heartburn Reasons: Heartburn Active ibuprofen (Motrin) 600 MG tabletIndicati ons:Osteoarthr itis Take 1 (one) tablet by mouth every 6 hours as needed for Pain Reasons: Joint Damage causing Pain and Loss of Function Acti ve magnesium hydroxide (Milk Of Magnesia) 400 MG/5ML suspensionIndi cations:Gastro esophageal Reflux Disease Take 30 mL by mouth once daily as needed Reasons: Gastroesophageal Reflux Disease Active calcium carbonate (Caltrate) 600 MG tabletIndicati ons:Heartburn Take 1 (one) tablet by mouth at bedtime Reasons: Heartburn Active ARIPiprazole ER (Abilify Maintena) 300 MG injectionIndic ations:Bipolar Mood Disorder Inject 300 (three hundred) mg into muscle every 28 days Reasons: Manic-Depression 1 Each 3 03/13/20 24 Active melatonin 1 MG tabletIndicati ons:Insomnia Take 2 (two) tablets by mouth at bedtime Reasons: Trouble Sleeping 31 tablet 3 03/13/20 24 Active hydrOXYzine HCl (Atarax) 10 MG tabletIndicati ons:Anxiety Take 1 (one) tablet by mouth 4 times daily Reasons: Feeling Anxious 124 tablet 1 05/28/[address] (Depakote) 500 MG tabletIndicati ons:Mixed Bipolar Affective Disorder Take 1 (one) tablet by mouth 2 times daily Reasons: MIXED BIPOLAR AFFECTIVE DISORDER 62 tablet 1 05/28/19 25 Active traZODone (Desyrel) 50 MG tabletIndicati ons:Insomnia Take 1 (one) tablet by mouth at bedtime Reasons: Trouble Sleeping 31 tablet 1 05/28/19 25 Active Active Problems Problem Noted Date Diagnosed Date Schizophrenia, unspecified type 12/18/2023 Social History Tobacco Use Types Packs/Day Years Used Date Smoking Tobacco: Never Smokeless Tobacco: Never Tobacco Cessation:Counseling Given: Not Answered Alcohol Use Standard Drinks/Week Comments Never 0 [...] Recorded Patient Health Questionnaire-2 Score 1 12/17/2023 [facility] [place] [facility] - Occupational Stress [...] money to buy more. Never true 12/18/19 Within the past 12 months, t he [...] on file Sexual Orientation Not on file Last Filed Vital Signs Vital Sign Reading Time Taken Comments Blood Pressure 100/63 03/10/2024 1:49 PM ANSWERING SERVICE TELEPHONE OPERATOR Pulse 91 12/27/2023 8:30 AM CDT Temperature 36.3 C (97.4 F) 03/10/2024 1:49 PM ANSWERING SERVICE TELEPHONE OPERATOR Respiratory Rate 18 12/27/2023 8:30 AM CDT Oxygen Saturation 98% 12/27/2023 8:30 AM CDT Inhaled Oxygen Concentration - - Weight 100.1 kg (220 lb 9.6 oz) 03/10/2024 1:49 PM ANSWERING SERVICE TELEPHONE OPERATOR Height 167.6 cm (5' 6) 12/18/2023 7:05 PM CDT Body Mass Index 35.61 12/18/2023 7:05 PM CDT Plan of Treatment Health Maintenance Due Date Last Done Comments MEDICARE AWV 12 MONTHS 1997 HIV SCREENING 01/26/2012 DTAP/TDAP/TD VACCINES (1 - Tdap) 01/26/2016 HEPATITIS B VACCINE (1 of 3 - 19+ 3-dose series) 01/26/2016 PAP SMEAR 2018 HPV VACCINE (1 - 3-dose SCDM series) 01/26/2024 DEPRESSION SCREENING 04/30/2024 03/13/2024 COVID-19 VACCINE (4 - 2024-2 6 season) 2024 03/04/2021, 07/22/2020, 07/01/2020 INFLUENZA VACCINE (#1) 2024 , 02/20/2020, 05/19/2012 ZOSTER VACCINE (1 of 2) 2047 HEPATITIS C SCREENING Completed 07/31/2023 HIB VACCINE Aged Out No longer eligi ble based on patient's age to complete this topic MENINGOCOCCAL (Group B) VACCINE SHARED DECISION-MAKING Aged Out No longer eligible based on patient's age to complete this topic MENINGOCOCCAL GROUPS A/C/Y/W VACCINE Aged Out No longer eligible b ased on patient's age to complete this topic PNEUMOCOCCAL VACCINE Aged Out No long er eligible based on patient's age to complete this topic Insurance [place] AN[place] Advance Directives * Full Code (Latest Code Status on File) Date Activated Date Inactivated Comments 12/18/2023 7:58 PM 12/27/2023 2:33 PM
[2025-02-03 08:23] VITALS: BP 122/71; PULSE 78; RESP 18; TEMP 36.4; O2SAT 99
[2025-02-03 08:35] LABS: EDUAAPPEAR Clear; EDUABILI Negative (Negative); EDUABLOOD Trace (Negative); EDUACOLOR1 Yellow; EDUAGLUCOSE Negative (Negative); EDUAKETONE Negative (Negative); EDUALEUKO 1+ (Negative); EDUANITRATE Negative (Negative); EDUAPH 7.0; EDUAPROTEIN Trace (Negative); EDUASPGRAVITY 1.020; EDUAUROBILI 1.0
== END 2025-02-03 08:42 | disposition home or self-care (01) ==
PROVIDERS: Emergency Provider Nurse Practitioner
DX: N39.0 Urinary tract infection, site not specified (principal)
CPT/HCPCS: 81003; 87086; 99213; G0463